=== PATIENT | female | born 1980 | race American Indian/Alaskan Native ===

== ENCOUNTER 2021-06-01 21:47 | Emergency (ER) | payer OTHER ==
[~2021-06-01] VITALS: Ht 152.4 cm; Wt 88.5 kg
[2021-06-01 22:26] LABS: URINE BILIRUBIN NEGATIVE (Negative); URINE BLOOD 3+ (Negative); URINE CLARITY CLEAR; URINE COLOR YELLOW; URINE GLUCOSE-RANDOM* NEGATIVE (Negative); URINE KETONES NEGATIVE (Negative); URINE LEUKOCYTES-REFLEX NEGATIVE (Negative); URINE NITRITE-REFLEX NEGATIVE (Negative); URINE PROTEIN (DIPSTICK) NEGATIVE (Negative); URINE SPECIFIC GRAVITY <= 1.005 (1.005-1.035); URINE UROBILINOGEN 0.2 E.U./dl (0.2-1.0)
[2021-06-01 22:39] LABS: BACTERIA-REFLEX None Seen /HPF (None Seen); CASTS None Seen /LPF (None Seen); CRYSTALS None Seen /LPF (None Seen); MUCUS None Seen strn/LPF (None Seen); SQUAMOUS None Seen /LPF (0-3); URINE RBC 1-2 Rare /HPF (NONE SEEN); URINE WBC-REFLEX None Seen /HPF (0-5)
[2021-06-01 22:57] LABS: ABSOLUTE NEUTROPHILS 3.8 thou/uL (1.4-8.2); BASOPHILS 0.3 % (0.0-2.0); EOSINOPHILS 1.3 % (0.0-3.0); HEMATOCRIT 37.2 % (37.0-47.0); HEMOGLOBIN 12.7 gm/dL (12.0-15.0); LYMPHOCYTES 34.8 % (24.0-44.0); MCHC 34.1 g/dL (28.0-37.0); MCV 91.1 fL (80.0-100.0); MONOCYTES 7.1 % (1.0-8.0); PLATELET COUNT 180 thou/uL (150-400); POLYS 56.5 % (36.0-66.0); RBC 4.09 mil/uL (4.20-5.00); RDW 14.1 % (10.5-14.5); WBC 6.6 thou/uL (4.0-11.0)
[2021-06-01 23:02] LABS: CALCIUM 8.6 mg/dL (8.5-10.1); POTASSIUM 3.8 mmol/L (3.5-5.1)
[2021-06-01 23:08] LABS: ALBUMIN 3.6 g/dL (3.4-5.0); TOTAL BILIRUBIN 0.3 mg/dL (0.2-1.0); TOTAL PROTEIN 6.9 g/dL (6.4-8.2)
[2021-06-02 00:02] VITALS: BP 148/84
== END 2021-06-02 00:11 | disposition home or self-care (01) ==
LOC: ER 21:47
PROVIDERS: Emergency Medicine
DX: O46.91 Antepartum hemorrhage, unspecified, first trimester (principal); Z3A.01 Less than 8 weeks gestation of pregnancy